=== PATIENT | female | born 1960 | race Caucasian/White ===

== ENCOUNTER 2020-05-12 12:05 | Emergency (ER) | payer OTHER, SELFPAY ==
[2020-05-12 12:14] VITALS: BP 151/103; PULSE 109; RESP 18; TEMP 36.3; O2SAT 98
[2020-05-12 12:38] LABS: Basophils Absolute Auto 0.1 K/mm3 (0.0-0.1); Eosinophils Absolute Auto 0.1 K/mm3 (0-0.3); Eosinophils Percent Auto 2.3 % (0-4.4); Hematocrit 33.4 % (37.0-47.0); Hemoglobin 11.3 g/dL (12.0-15.0); Immature Granulocyte Absolute 0.01 K/mm3 (0.00-0.031); Immature Granulocyte Percent A 0.2 % (0-0.5); Lymphocytes Absolute Auto 1.77 K/mm3 (0.9-3.2); Lymphocytes Percent Auto 30.8 % (18.3-44.2); Mean Corpuscular HGB Conc 33.8 g/dl (32-36); Mean Corpuscular Hemoglobin 33.3 pg (26-34); Mean Corpuscular Volume 98.5 fl (80-100); Mean Platelet Volume 10.3 fl (7.4-10.4); Monocytes Absolute Auto 0.5 K/mm3 (0.1-0.6); Monocytes Percent Auto 8.2 % (2.6-8.5); Neutrophils Absolute Auto 3.3 K/mm3 (1.3-6.7); Neutrophils Percent Auto 57.5 % (45.5-73.1); Platelet Count Result 287 k/mm3 (150-375); Red Blood Count 3.39 M/mm3 (4.2-5.4); Red Cell Distribution Width 12.9 % (11.5-14.5); White Blood Count 5.7 K/mm3 (4.5-10.0)
--- NOTE | 2020-05-12 12:48 | ED.GENADULT ---
HPI - General Adult General Chief complaint: Wound/Laceration <Bolivar Arizmendi PA-C - Last Filed: 05/12/20 13:35> Stated complaint: foot injury <Bolivar Arizmendi PA-C - Last Filed: 05/12/20 13:35> Time Seen by Provider: 05/12/20 12:13 <Bolivar Arizmendi PA-C - Last Filed: 05/12/20 13:35> Source: patient <Bolivar Arizmendi PA-C - Last Filed: 05/12/20 13:35> Mode of arrival: ambulatory <Bolivar Arizmendi PA-C - Last Filed: 05/12/20 13:35> Limitations: no limitations <Bolivar Arizmendi PA-C - Last Filed: 05/12/20 13:35> History of Present Illness HPI narrative: Patient is a 60-year-old female who presents with wound to the left forefoot patient with insect bites that have been evaluated by dermatology and primary care patient has a lesion to the left forefoot laterally where she has itched the excoriation has become secondarily infected with some swelling and redness around the lesion no lymphangitic streaking or extension into the ankle. Patient denies fever chills nausea vomiting presents in no distress <Bolivar Arizmendi PA-C - Last Filed: 05/12/20 13:35> Related Data Allergies/adverse reactions: Allergies Allergy/AdvReac Type Severity Reaction Status Date / Time codeine AdvReac Nausea Verified 05/12/20 12:22 <Bolivar Arizmendi PA-C - Last Filed: 05/12/20 13:35> Review of Systems Review of Systems: All systems reviewed & are unremarkable except as noted in HPI and below <Bolivar Arizmendi PA-C - Last Filed: 05/12/20 13:35> PMFSH Past Medical History Medical History: Medical History (Updated 05/12/20 @ 12:52 by Jolene Arizmendi) Chronic pancreatitis <Bolivar Arizmendi PA-C - Last Filed: 05/12/20 13:35> Social History Social History: Social History Smoking status: Current every day smoker Alcohol intake: current <FARRAH Iglesias Last Filed: 05/12/20 13:35> Exam Narrative: Exam Narrative: GENERAL: Well-appearing, well-nourished, and in no acute distress. HEAD: Normocephalic, atraumatic. EYES: PERRLA and EOMI. ENT: Nares clear, no rhinorrhea or epistaxis. Mucous membranes moist. CHEST: Clear to auscultation. No respiratory distress. No wheezes rales or rhonchi HEART: Regular rate and rhythm. No murmur heard. Normal peripheral pulses. EXTREMITIES: Normal range of motion. No edema. SKIN: Warm, dry, no rash. Patient with excoriated lesion to the left lateral forefoot with some surrounding erythema extending near the midfoot does not extend to the ankle no lymphangitic streaking nonfluctuant non-circumferential no involvement of the plantar foot or digits NEURO: No focal deficits. Alert and oriented x3. Neurovascularly intact PSYCH: Normal mood and affect. <FARRAH Iglesias Last Filed: 05/12/20 13:35> Course Course Emergency Course: Patient in the room in no distress aware of case findings treatment plan and diagnosis agreeing to follow-up as directed or to return if symptoms worsen or concerns <FARRAH Iglesias Last Filed: 05/12/20 13:35> Vital Signs Vital signs: Vital Signs Temperature 36.3 C L 05/12/20 12:14 Pulse Rate 109 H 05/12/20 12:14 Respiratory Rate 18 05/12/20 12:14 Blood Pressure 151/103 H 05/12/20 12:14 Pulse Oximetry 98 05/12/20 12:14 Temperature 36.3 C L 05/12/20 12:14 Pulse Rate 109 H 05/12/20 12:14 Respiratory Rate 18 05/12/20 12:14 Blood Pressure 151/103 H 05/12/20 12:14 Pulse Oximetry 98 05/12/20 12:14 <FARRAH Iglesias Last Filed: 05/12/20 13:35> Vital Signs Temperature 36.3 C L 05/12/20 12:14 Pulse Rate 109 H 05/12/20 12:14 Respiratory Rate 18 05/12/20 12:14 Blood Pressure 151/103 H 05/12/20 12:14 Pulse Oximetry 98 05/12/20 12:14 Temperature 36.3 C L 05/12/20 12:14 Pulse Rate 109 H 05/12/20 12:14 Respiratory Rate 18 05/12/20 12:14 Blood Pressure
[2020-05-12 12:51] LABS: Add Urine Microscopic? NO; Appearance Urine Clear (Clear); Bilirubin Urine Negative (Negative); Blood Urine Negative (Negative); Color Urine Straw (Yellow); Glucose Urine UA Negative (Negative); Ketones Urine Negative (Negative); Leukocyte Esterase Ur Negative LEU/UL (Negative); Nitrate Urine Negative (Negative); Protein Urine Negative (Negative); Specific Grav Ur 1.005 (1.001-1.035); Urobilinogen Urine Negative mg/dL (<2.0)
[2020-05-12 12:51] LABS: Alanine Aminotransferase 24 U/L (4-35); Albumin Level 3.5 g/dL (3.5-5.1); Alkaline Phosphatase 78 U/L (38-126); Anion Gap 5 mmol/L (8-16); Aspartate Amino Transferase 28 U/L (14-36); Bilirubin,Total 0.3 mg/dL (0.2-1.3); Blood Urea Nitrogen 2 mg/dL (7-17); Calcium 8.2 mg/dL (8.4-10.2); Carbon Dioxide 27 mmol/L (22-30); Chloride 105 mmol/L (98-107); Estimated CRCL calculation 82 ml/min; Estimated Glomerular Filt Rate > 60; Glucose 132 mg/dL (65-105); Potassium 3.5 mmol/L (3.4-5.0); Sodium 137 mmol/L (137-145)
[2020-05-12 13:15] LABS: Amphetamine Screen Urine Negative (Negative); Barbiturate Screen Urine Negative (Negative); Benzodiazepines Screen Urine Negative (Negative); Cannabinoid Screen Urine Negative (Negative); Cocaine Screen Urine Negative (Negative); Methadone Screen Urine Negative (Negative); Opiate Screen Urine Negative (Negative); Phencyclidine Screen Urine Negative (Negative)
[2020-05-12 13:31] LABS: Lipase < 10 U/L (23-300)
[2020-05-12 14:00] VITALS: BP 143/80; PULSE 88; RESP 20; O2SAT 100
--- NOTE | 2020-05-12 14:57 | PC.NURSE ---
1355 pts wound cleaned on left foot and triple antibiotic ointment applied with 2x2 dressings and coban
== END 2020-05-12 14:00 | disposition home or self-care (01) ==
PROVIDERS: Emergency Medicine Emergency Medical Services; Emergency Provider Emergency Medicine
DX: L03.116 Cellulitis of left lower limb (principal); K86.1 Other chronic pancreatitis; F17.200 Nicotine dependence, unspecified, uncomplicated
CPT/HCPCS: 36415; 80053; 80307; 81003; 83690; 85025; 99283